=== PATIENT | male | born 1970 | race Caucasian/White ===

== ENCOUNTER 2017-12-10 16:34 | Emergency (ER) | payer SELFPAY ==
--- NOTE | 2017-12-10 17:35 | RADIOLOGY REPORT (SQ) ---
EXAM DESCRIPTION: CT HEAD WITHOUT COMPLETED DATE/TIME: 12/10/2017 5:25 pm REASON FOR STUDY: TRAUMA / PAIN COMPARISON: 05/19/2015 TECHNIQUE: Axial images acquired through the brain without intravenous contrast. Images reviewed wi th bone, brain and subdural windows. Images stored on PACS. All CT scanners at this facility use dose modulation, iterative reconstruction, and/or weight based d osing when appropriate to reduce radiation dose to as low as reasonably achievable (ALARA). [facility]: Dose Right [facility]: CareDose [facility]: Dose Right [facility]: Teradose 4D [facility]: Smart [employer] RADIATION DOSE: CT Rad equipment meets quality standard of care and radiation dose reduction techniq ues were employed. CTDIvol: 53.2 mGy. DLP: 1124 mGy-cm. mGy. LIMITATIONS: None. FINDINGS: VENTRICLES: Normal size and contour. CEREBRUM: No masses. No hemorrhage. No midline shift. No evidence for acute infarction. Normal gra y/white matter differentiation. No areas of low density in the white matter. CEREBELLUM: No masses. No hemorrhage. No alteration of density. No evidence for acute infarction. EXTRAAXIAL SPACES: No fluid collections. No masses. ORBITS AND GLOBE: No intra- or extraconal masses. Normal contour of globe without masses. CALVARIUM: No fracture. PARANASAL SINUSES: No fluid or mucosal thickening. SOFT TISSUES: No mass or hematoma. OTHER: No other significant finding. IMPRESSION: No acute intracranial findings. EVIDENCE OF ACUTE STROKE: NO. COMMENT: Quality ID # [id number]: Final reports with documentation of one or more dose reduction techniques (e.g., Automated exposure control, adjustment of the mA and/or kV according to patient size, use of iterative reconstruction technique) TECHNICAL DOCUMENTATION: JOB ID: [id number] [place]-72 2010 [employer]- All Rights Reserved Reading location - IP/workstation name: [email or web address]
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
--- NOTE | 2017-12-10 17:39 | RADIOLOGY REPORT (SQ) ---
EXAM DESCRIPTION: CT CERVICAL SPINE WITHOUT COMPLETED DATE/TIME: 12/10/2017 5:25 pm REASON FOR STUDY: TRAUMA / PAIN COMPARISON: None. TECHNIQUE: Axial images acquired through the cervical spine without intravenous contrast. Images re viewed with lung, soft tissue and bone windows. Reconstructed coronal and sagittal MPR images review ed. Images stored on PACS. All CT scanners at this facility use dose modulation, iterative reconstruction, and/or weight based d osing when appropriate to reduce radiation dose to as low as reasonably achievable (ALARA). [facility]: Dose Right [facility]: CareDose [facility]: Dose Right [facility]: Teradose 4D [facility]: Smart [employer] RADIATION DOSE: CT Rad equipment meets quality standard of care and radiation dose reduction techniq ues were employed. CTDIvol: 19.9 mGy. DLP: 429 mGy-cm. mGy. LIMITATIONS: None. FINDINGS: ALIGNMENT: Mild torticollis. MINERALIZATION: Normal. VERTEBRAL BODIES: No fractures or dislocation. DISCS: Multilevel disc space narrowing with osteophytes. FACETS, LATERAL MASSES, POSTERIOR ELEMENTS: Facet arthropathy. No fractures. No dislocation. No ac denise findings. HARDWARE: None in the spine. VISUALIZED RIBS: No fractures. LUNG APICES AND SOFT TISSUES: No significant or acute findings. OTHER: No other significant finding. IMPRESSION: CHRONIC DEGENERATIVE CHANGES. NO ACUTE FINDINGS. TECHNICAL DOCUMENTATION: JOB ID: [id number] [place]-72 Quality ID # [id number]: Final reports with documentation of one or more dose reduction techniques (e.g., Au tomated exposure control, adjustment of the mA and/or kV according to patient size, use of iterative reconstruction technique) 2010 [employer]- All Rights Reserved Reading location - IP/workstation name: [email or web address]
[2017-12-10 19:37] VITALS: BP 159/91
== END 2017-12-10 19:36 | disposition home or self-care (01) ==
LOC: ER 16:34
DX: S00.03XA Contusion of scalp, initial encounter (principal); S16.1XXA Strain of muscle, fascia and tendon at neck level, initial encounter; S80.812A Abrasion, left lower leg, initial encounter; S80.811A Abrasion, right lower leg, initial encounter; S40.812A Abrasion of left upper arm, initial encounter; S40.811A Abrasion of right upper arm, initial encounter; S09.90XA Unspecified injury of head, initial encounter; C44.619 Basal cell carcinoma of skin of left upper limb, including shoulder; M25.512 Pain in left shoulder; V87.7XXA Person injured in collision between other specified motor vehicles (traffic), initial encounter; F17.210 Nicotine dependence, cigarettes, uncomplicated; I10 Essential (primary) hypertension
CPT/HCPCS: 70450; 72125; 99283

== ENCOUNTER 2018-11-02 05:24 | Day surgery (SDC) | payer OTHER ==
[2018-10-26 10:21] LABS: HEMATOCRIT 48.7 % (37.9-51.0); HEMOGLOBIN 16.5 g/dL (13.5-17.0); MEAN CORPUSCULAR HEMOGLOBIN 32.2 pg (27.0-33.4); MEAN CORPUSCULAR HGB CONC 33.9 g/dL (32.0-36.0); MEAN CORPUSCULAR VOLUME 95 fl (80-97); PLATELET COUNT 237 10^3/uL (150-450); RED BLOOD COUNT 5.13 10^6/uL (4.35-5.55); RED CELL DISTRIBUTION WIDTH 13.4 % (11.5-14.0); WHITE BLOOD COUNT 6.9 10^3/uL (4.0-10.5)
[2018-10-26 10:49] LABS: ANION GAP 8 (5-19); BLOOD UREA NITROGEN 12 mg/dL (7-20); CALCIUM 8.7 mg/dL (8.4-10.2); CARBON DIOXIDE 30 mmol/L (22-30); CHLORIDE 104 mmol/L (98-107); GLUCOSE 76 mg/dL (75-110); POTASSIUM 4.4 mmol/L (3.6-5.0); SODIUM 141.6 mmol/L (137-145)
--- NOTE | 2018-10-26 23:00 | EKG REPORT ---
SEVERITY:- BORDERLINE ECG - SINUS RHYTHM BORDERLINE INFERIOR Q WAVES : Confirmed by: Lora Naranjo 26-Oct-2018 22:59:43
[~2018-11-02 05:24] MED LIST: CEFAZOLIN 1 GM/D5W RTU 1 GM/50 ML RTUPB IV ONE; CEFAZOLIN 1 GM/D5W RTU 1 GM/50 ML RTUPB IV PRN; LACTATED RINGERS 1000 ML IV PRN; LIDOCAINE 0.5% INJ-PF (5 MG/ML) 50 ML SDV SUBCUT PRN
[2018-11-02] MEDS ORDERED: FENTANYL CITRATE INJ/PF 100 MCG/2 ML AMPUL ONE (06:42)
[2018-11-02] MEDS ORDERED: HYDROMORPHONE HCL INJ/PF 2 MG/ML AMPULE ONE (06:42)
[2018-11-02] MEDS ORDERED: MIDAZOLAM 2 MG/2 ML INJ ONE (06:43)
[2018-11-02] MEDS ORDERED: PROPOFOL INJ 200 MG/20 ML VIAL IV ONE (06:43)
[2018-11-02] MEDS ORDERED: ACETAMINOPHEN 1,000 MG/100 ML RTUPB IV ONE (06:43)
[2018-11-02] MEDS ORDERED: LIDOCAINE 2% INJ (20 MG/ML) 20 ML MDV ONE (07:12)
[2018-11-02] MEDS ORDERED: LIDOCAINE 1%/EPINEPHRINE INJ 20 ML VIAL ONE (07:21)
[2018-11-02] MEDS ORDERED: LIDOCAINE 1% INJ-PF (10 MG/ML) 30 ML SDV ONE (07:21)
[2018-11-02] MEDS ORDERED: THROMBIN (BOVINE) TOPICAL 5000 UNIT VIAL ONE (07:21)
[2018-11-02] MEDS ORDERED: MINERAL OIL (STERILE) 10 ML VIAL ONE (07:21)
[2018-11-02] MEDS ORDERED: FENTANYL CITRATE INJ/PF 100 MCG/2 ML AMPUL IV PRN ×3 (07:48)
[2018-11-02] MEDS ORDERED: MEPERIDINE HCL/PF INJ 25 MG/1 ML DISP.SYRIN IV PRN (07:48)
[2018-11-02] MEDS ORDERED: PROMETHAZINE HCL INJ 25 MG/1 ML VIAL IV PRN (07:48)
[2018-11-02] MEDS ORDERED: MORPHINE SULFATE 10 MG/ML INJ IV PRN (07:48)
[2018-11-02] MEDS ORDERED: DIPHENHYDRAMINE HCL 50 MG/ML VIAL IV PRN (07:48)
--- NOTE | 2018-11-02 09:19 | Operative Report ---
Operative Report DATE OF SURGERY: 11/02/18 PREOPERATIVE DIAGNOSIS: 1. Large basal cell carcinoma left shoulder. 2. Atyp ical skin lesion right upper arm POSTOPERATIVE DIAGNOSIS: Same OPERATION: 1. Complete excision of left shoulder basal cell carcinoma, primary closure of excision site over drain. 2. Excision of right upper arm skin lesion SURGEON: KALIE MCBRIDE ANESTHESIA: GA TISSUE REMOVED OR ALTERED: Left shoulder basal cell carcinoma; atypical skin lesion right upper arm COMPLICATIONS: None ESTIMATED BLOOD LOSS: 20 cc INTRAOPERATIVE FINDINGS: See below PROCEDURE: The patient was taken from the preop holding area where the left shoulder, and right upper arm lesions were marked by Dr. Mcbride. The patient was then taken to the main operating room where general anesthesia was induced. The patient was rotated to the right side slightly with exposure of the right upper arm, the left shoulder, and the left anterior thigh which is been previously clipped of hair. There were shoulder roll was placed under the left scapula to expose the left shoulder. All 3 sites were then prepped and draped in sterile fashion Surgical plan and surgical timeout were conducted. We approached the left shoulder lesion first. This was the exophytic, ulcerated large basal cell carcinoma at the base of the left neck, just medial to the shoulder. The lesion was approximately 5 x 5 cm, with a perimeter of abnormal but intact skin. Markings were made on the skin for a long transverse excision encompassing the skin on the chest wall, the target lesion on the top of the shoulder, and the intact skin over the back. The skin was anesthetized with 1% plain lidocaine. The lesion was now excised using a #10 blade, with a level of dissection taken down to the trapezius muscle. The skin and subcutaneous tissue excision specimen, including superficial fascia, was elevated off of the muscle with electrocautery. The final specimen was labeled with a long suture in the lateral position and a short suture in the anterior or frontal position. It was sent to pathology and examined via frozen section by Dr. Charlie Cortez and was felt to represent a basal cell carcinoma with clear margins. We now elevated the medial and lateral skin flaps with electrocautery. A 10 Divehi Oc drain was placed in the recesses of the wound cavity, and brought out of the patient's back skin a separate stab wound with a #15 blade. With tension taken off of the shoulder, we approximated this 18 cm long by 6 cm wide defect with multiple interrupted 2-0 Vicryl sutures in a sequential fashion. With tension, we were able to bring the flaps together over the drain. The flaps appeared viable but tight. I felt this was the most appropriate way to close this incision in this high risk patient with a strong smoking history; rather than committing him to an additional wound from a skin graft donor site The drain was hooked up to bulb suction. The skin was brought together with multiple finn The right upper extremity atypical skin lesion approximately 1 cm in diameter on the anterior lateral surface of the right upper arm was anesthetized with 1% plain lidocaine, excised in elliptical fashion, specimen sent for permanent analysis to pathology, wound closed with 3-0 Vicryl benzoin and Steri-Strips. A large honeycomb dressing was placed in the patient's left shoulder. A shoulder brace was secured into position. The patient tolerated procedure well, extubated, taken recovery room in stable condition.
[2018-11-02] MEDS ORDERED: KETOROLAC TROMETHAMINE 10 MG TABLET PO PRN (09:21)
[2018-11-02] MEDS ORDERED: ONDANSETRON HCL INJ/PF 4 MG/2 ML SDV IV PRN (09:21)
[2018-11-02] MEDS ORDERED: KETOROLAC TROMETHAMINE INJ/PF 30 MG/1 ML SDV IV PRN (09:21)
--- NOTE | 2018-11-02 09:21 | Discharge Summary ---
Discharge Summary (SDC) - Discharge Final Diagnosis: Large basal cell carcinoma left shoulder Date of Surgery: 11/02/18 Discharge Date: 11/02/18 Condition: Good Treatment or Instructions: Leave dressing in bold into position; teach patient and/or friend how to drain bulb; please use shoulder brace at all times until seen in the clinic. Return to [facility] in 1 week for evaluation. Prescription for pain medication on chart. Discharge Diet: As Tolerated Discharge Activity: Other - As directed; use shoulder brace at all times. Report the Following to Your Physician Immediately: Shortness of Breath, Increase in Pain, Fever over 101 Degrees
[2018-11-02 11:02] VITALS: BP 161/87
[2018-11-02] MEDS ORDERED: ONDANSETRON HCL INJ/PF 4 MG/2 ML SDV ONE (13:46)
[2018-11-02] MEDS ORDERED: ROCURONIUM BROMIDE INJ 50 MG/5 ML VIAL IV ONE (13:46)
[2018-11-02] MEDS ORDERED: SUCCINYLCHOLINE CHLORIDE INJ 200 MG/10 ML VIAL ONE (13:46)
[2018-11-02] MEDS ORDERED: DEXAMETHASONE SOD PHOSPHATE INJ 4 MG/1 ML VIAL ONE (13:46)
[2018-11-02] MEDS ORDERED: KETOROLAC TROMETHAMINE 60 MG/2 ML SDV ONE (13:46)
== END 2018-11-02 10:40 | disposition home or self-care (01) ==
LOC: OROUT 05:24
PROVIDERS: ATTEND Surgery
DX: C44.619 Basal cell carcinoma of skin of left upper limb, including shoulder (principal); D23.61 Other benign neoplasm of skin of right upper limb, including shoulder
CPT/HCPCS: 93005; 36415; 85027; 80048; 88305 ×2; 88331 ×2; 88332 ×2; 93010; 11606; L3650; J2250; J3490 ×3; J0690; J1100; J1885; J1170; J0330; J2405; J2704; J0131; 400; J3010